=== PATIENT | female | born 1955 | race Caucasian/White ===

== ENCOUNTER → 2021-12-23 | Outpatient (CLI) | payer OTHER ==
--- NOTE | 2021-12-23 09:51 | KCIC ---
EXAM: CT coronary artery calcium screening; radiologist over read. HISTORY: Cardiovascular screening. Mixed hyperlipidemia. Family history of heart disease. TECHNIQUE: Computed tomographic images of the chest were obtained without contrast. Multiplanar refor matting was performed. *One or more of the following individualized dose reduction techniques were utilized for this examina tion: 1. Automated exposure control. 2. Adjustment of the mA and/or kV according to patient size. 3. Use of iterative reconstruction technique. COMPARISON: None. FINDINGS: The heart is normal in size. The aorta is normal in caliber. There is no coronary artery ca lcification. There is no lymphadenopathy. There is no consolidation, pleural effusion or pneumothorax . There are calcified granulomas within the right lower lobe. There are a few small 3 mm and 2 mm debbie undglass nodular opacities within the right upper and lower lobes. For reference purposes, there are nodules on series 5, images 8, 10, 11 and 16. There is medial right middle lobe and lingular linear a telectasis or scarring. There is no acute finding involving the upper abdomen or osseous structures. There are implanted breast prostheses. Coronary artery calcium score: 0. IMPRESSION: 1. No coronary artery calcification. Coronary artery calcium score of 0. 2. Tiny 2 and 3 mm groundglass nodules within the right upper and lower lobes. These are benign in ap pearance. Follow-up can be performed in one year if there are risk factors for for neoplasm. Electronically signed by: Ivana Walter MD (12/23/2021 9:49 AM) [id number]
== END ==
LOC: KCIC CT 08:49
PROVIDERS: ATTEND Family Medicine
DX: E78.2 Mixed hyperlipidemia (principal); R91.8 Other nonspecific abnormal finding of lung field; J84.10 Pulmonary fibrosis, unspecified
CPT/HCPCS: 75571